=== PATIENT | female | born 1970 | race Hispanic/Latino ===

== ENCOUNTER 2018-02-20 10:14 | Emergency (ER) | payer OTHER ==
[2018-02-20 10:29] VITALS: BP 146/96; PULSE 83; RESP 18; TEMP 98.3; O2SAT 100
--- NOTE | 2018-02-20 10:57 | C.PDOC ---
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 Patient states she had baseline HIV and Hepatitis C testing done. Patient reports she did not start taking any HIV medications. She notes that she came to the ER for follow-up. Denies having fever and chills. Time Seen by Provider: 02/20/18 10:32 Chief Complaint (Nursing): Medical Clearance History Per: Patient History/Exam Limitations: no limitations Past Medical History Reviewed: Historical Data, Nursing Documentation, Vital Signs Vital Signs: Last Vital Signs Temp 98.3 F 02/20/18 10:25 Pulse 83 02/20/18 10:25 Resp 18 02/20/18 10:25 BP 146/96 H 02/20/18 10:25 Pulse Ox 100 02/20/18 11:09 - Medical History PMH: HTN, Migraine Denies: Chronic Kidney Disease Surgical History: No Surg Hx Family History: States: No Known Family Hx - Social History Hx Tobacco Use: No Hx Alcohol Use: No Hx Substance Use: No - Immunization History Hx Tetanus Toxoid Vaccination: No Hx Influenza Vaccination: No Hx Pneumococcal Vaccination: No Review Of Systems Except As Marked, All Systems Reviewed And Found Negative. Skin: Positive for: Other (right index finger injury) Physical Exam - Physical Exam Appears: Non-toxic, No Acute Distress Skin: Normal Color, Warm, Dry Head: Atraumatic, Normacephalic Eye(s): bilateral: Normal Inspection Nose: Normal Oral Mucosa: Moist Neck: Supple Chest: Symmetrical Extremity: Normal ROM, Other ( right index finger with no bandage, no active bleeding) Neurological/Psych: Oriented x3, Normal Speech ED Course And Treatment O2 Sat by Pulse Oximetry: 100 (RA) Pulse Ox Interpretation: Normal Disposition Discussed With DrJessica: Viktor Mehta Counseled Patient/Family Regarding: Diagnosis - Disposition Disposition: HOME/ ROUTINE Disposition Time: 10:56 Condition: STABLE Forms: [facility] (Togolese), General Discharge Instructions - Clinical Impression Clinical Impression: Needle stick injury - Scribe Statement The provider has reviewed the documentation as recorded by the Deysiibpatricia Anton Provider Attestation: All medical record entries made by the Scribe were at my direction and personally dictated by me. I have reviewed the chart and agree that the record accurately reflects my personal performance of the history, physical exam, medical decision making, and the department course for this patient. I have also personally directed, reviewed, and agree with the discharge instructions and disposition.
== END 2018-02-20 11:07 | disposition home or self-care (01) ==
LOC: C.ER 10:14
DX: S69.91XA Unspecified injury of right wrist, hand and finger(s), initial encounter (principal); W46.0XXA Contact with hypodermic needle, initial encounter; I10 Essential (primary) hypertension